=== PATIENT | female | born 1985 | race American Indian/Alaskan Native ===

== ENCOUNTER 2016-12-06 22:26 | Emergency (ER) | payer MEDICAID ==
[2016-12-07 00:01] LABS: Basophils % (Auto) 0.3 % (0.0-1.8); Eosinophils % (Auto) 1.3 % (0.0-4.3); Hematocrit 34.2 % (30.3-42.9); Hemoglobin 11.8 gm/dl (10.1-14.3); Mean Corpuscular HGB Conc 34 % (30-34); Mean Corpuscular Hemoglobin 32 pg (28-32); Mean Corpuscular Volume 92 fl (79-97); Platelet Count 222 K/mm3 (140-440); Red Blood Count 3.71 M/mm3 (3.65-5.03); Red Cell Distribution Width 13.8 % (13.2-15.2); White Blood Count 7.6 K/mm3 (4.5-11.0)
[2016-12-07 00:18] LABS: Anion Gap 19 mmol/L; Blood Urea Nitrogen 12 mg/dL (7-17); Calcium 8.9 mg/dL (8.4-10.2); Carbon Dioxide 20 mmol/L (22-30); Chloride 103.1 mmol/L (98-107); Glucose 158 mg/dL (65-100); Potassium 3.9 mmol/L (3.6-5.0); Sodium 138 mmol/L (137-145)
[2016-12-07 01:32] LABS: Bilirubin,Urine NEG (Negative); Blood,Urine MOD (Negative); Ketones,Urine 20 mg/dL (Negative); Leukocyte Esterase,Urine TR (Negative); Mucus,Urine FEW /HPF; Nitrite,Urine NEG (Negative); Protein,Urine <15 mg/dL mg/dL (Negative); Urobilinogen,Urine < 2.0 mg/dL (<2.0)
--- NOTE | 2016-12-07 07:02 | Emergency Department Report ---
ED General Adult HPI - General Chief complaint: Headache Stated complaint: MED REFILL GESTATIONAL DIABETES Time Seen by Provider: 12/07/16 06:49 Source: patient Mode of arrival: Ambulatory Limitations: No Limitations - History of Present Illness Initial comments: 31-year-old female presents to the emergency department complaining of general ill feeling. She states she ran out of her glipizide 3 days ago. Patient is complaining of feeling lightheaded, that has not passed out. She also reported mild frontal headache. This pain was aching in nature and did not radiate. Patient is 26 weeks , . She denies abdominal pain, nausea, vomiting, vaginal discharge, or vaginal bleeding. At this time, the patient reports she is feeling better. There are no other complaints. -: Gradual, days(s) (3) Location: head Radiation: non-radiation Severity scale (0 -10): 0 Quality: aching Consistency: intermittent, now resolved Improves with: none Worsens with: none Associated Symptoms: denies other symptoms Treatments Prior to Arrival: none - Related Data Previous Rx's Medication Instructions Recorded Last Taken Type glipiZIDE [Glucotrol] 10 mg PO BID #10 tablet 12/07/16 Unknown Rx Allergies Allergy/AdvReac Type Severity Reaction Status Date / Time No Known Allergies Allergy Verified 12/06/16 23:00 ED Review of Systems ROS: Stated complaint: MED REFILL GESTATIONAL DIABETES Other details as noted in HPI Comment: All other systems reviewed and negative Constitutional: see HPI Neurological: headache ED Past Medical Hx - Past Medical History Previous Medical History?: Yes Hx Diabetes: Yes (GESTANIONAL) - Surgical History Past Surgical History?: Yes Additional Surgical History: C SECTION X 1 - Family History Family history: no significant - Social History Smoking Status: Never Smoker Substance Use Type: None - Medications Home Medications: Home Medications Medication Instructions Recorded Confirmed Last Taken Type glipiZIDE [Glucotrol] 10 mg PO BID #10 tablet 12/07/16 Unknown Rx ED Physical Exam - General Limitations: No Limitations General appearance: alert, in no apparent distress - Head Head exam: Present: atraumatic, normocephalic - Eye Eye exam: Present: normal appearance, PERRL, EOMI - ENT ENT exam: Present: normal exam, normal orophraynx, mucous membranes moist - Neck Neck exam: Present: normal inspection, full ROM. Absent: tenderness - Respiratory Respiratory exam: Present: normal lung sounds bilaterally. Absent: respiratory distress - Cardiovascular Cardiovascular Exam: Present: regular rate, normal rhythm, normal heart sounds - GI/Abdominal GI/Abdominal exam: Present: soft, distended (gravid uterus), normal bowel sounds. Absent: tenderness - Extremities Exam Extremities exam: Present: normal inspection, full ROM. Absent: tenderness - Back Exam Back exam: Present: normal inspection, full ROM. Absent: tenderness - Neurological Exam Neurological exam: Present: alert, oriented X3. Absent: motor sensory deficit - Skin Skin exam: Present: warm, dry, intact ED Course Vital Signs 12/06/16 12/07/16 23:01 05:47 Temperature 98.3 F Pulse Rate 86 69 Respiratory 18 16 Rate Blood Pressure 118/70 Blood Pressure 115/75 [Right] O2 Sat by Pulse 100 99 Oximetry ED Medical Decision Making - Lab Data Result diagrams: 12/06/16 23:43 12/06/16 23:43 - Medical Decision Making Lab results reviewed and discussed with the patient. Her initial fingerstick blood sugar was 186. Her last blood sugar of was 116. She reports feeling better. Patient states she has a prescription for medication at the pharmacy, but her insurance will not pay for it for a couple of more days. Patient will be given a prescription for a small supply of medication until her insurance will pay for the full prescription. She will be discharged home to follow up with her [facility] [employer]. - Differential Diagnosis gestational diabetes, medication noncompliance Critical care attestation.: If time is entered above; I have spent that time in minutes in the direct care of this critically ill patient, excluding procedure time. ED Disposition Clinical Impression: Gestational diabetes Qualifiers: Gestational diabetes mellitus control: oral hypoglycemic-controlled Trimester: third trimester Qualified Code(s): O24.415 - Gestational diabetes mellitus in , controlled by oral hypoglycemic drugs Disposition: DISCHARGED TO HOME OR SELFCARE Is pt being admited?: No Condition: Stable Instructions: Gestational Diabetes (ED) Prescriptions: glipiZIDE [Glucotrol] 10 mg PO BID #10 tablet Referrals: PRIMARY CARE, [Primary Care Provider] - 3-5 Days Time of Disposition: 07:04
[2016-12-07 07:37] VITALS: BP 98/65
== END 2016-12-07 07:37 | disposition home or self-care (01) ==
LOC: ED 22:26
DX: O24.415 Gestational diabetes mellitus in pregnancy, controlled by oral hypoglycemic drugs (principal); Z3A.26 26 weeks gestation of pregnancy
CPT/HCPCS: 36415; 80048; 81001; 82962; 85025; 99283

== ENCOUNTER 2017-01-18 09:02 | Outpatient (CLI) | payer MEDICAID ==
[2017-01-18 10:34] VITALS: BP 82/38
[2017-01-18] MEDS ORDERED: LACTATED RINGERS 500 ML IV ONE (13:00)
--- NOTE | 2017-01-18 13:16 | Ultrasound Report ---
OB ULTRASOUND GREATER THAN 14 WEEKS INDICATION: Evaluate growth and anatomy. well-being. COMPARISON: None similar at this institution. TECHNIQUE: Transabdominal grayscale ultrasound with Doppler interrogation. Gestation: [place] Position: Variable Amniotic Fluid: WNL (7-24 cm) JACKIE = 18.8 cm Placenta: Anterior Placental Grade: 0 Heart Rate: 132 BPM Cervical length: 4.1 cm (Normal > 3 cm) NEUROANATOMY VISUALIZED: Choroid Plexus Cisterna Magnum Cerebellum Lateral Ventricle ANATOMY VISUALIZED: Stomach Kidneys Bladder Diaphragm 4 Chamber Heart Heart 3 Vessel Cord Abd. Cord Insert SPINE VISUALIZED: Longitudinal Transverse BPD: 7.1 cm = 28 w 4 d HC: 26.6 cm = 29 w 0 d AC: 27 cm = 31 w 1 d FL: 5.6 cm = 29 w 3 d HC/AC Ratio: 0.99 Cephalic Index: 78.5 Estimated Weight: 1522 grams Clinical age = 29 w 5 d EDC: 03/31/2017 US Gest. Age = 29 w 4 d EDC: 04/01/2017 CONCLUSION: Single, viable intrauterine gestation with ultrasound estimated age of 29 weeks and 4 days and EDC of 04/01/2017, currently in variable lie with details, as above. Thank you for the opportunity to participate in this patient's care.
== END 2017-01-18 12:50 | disposition home or self-care (01) ==
LOC: TRG 09:02
PROVIDERS: ATTEND Obstetrics & Gynecology
DX: O47.03 False labor before 37 completed weeks of gestation, third trimester (principal); Z3A.29 29 weeks gestation of pregnancy
CPT/HCPCS: 59025; 76805

== ENCOUNTER 2018-08-11 09:33 | Emergency (ER) | payer MEDICAID ==
[2018-08-11] MEDS ORDERED: IBUPROFEN PO ONE (12:22)
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
[2018-08-11 14:09] VITALS: BP 143/76
== END 2018-08-11 14:09 | disposition home or self-care (01) ==
LOC: ED 09:33
DX: S13.4XXA Sprain of ligaments of cervical spine, initial encounter (principal); S39.012A Strain of muscle, fascia and tendon of lower back, initial encounter; S76.011A Strain of muscle, fascia and tendon of right hip, initial encounter; F17.200 Nicotine dependence, unspecified, uncomplicated; V89.2XXA Person injured in unspecified motor-vehicle accident, traffic, initial encounter; Y93.89 Activity, other specified; Y92.488 Other paved roadways as the place of occurrence of the external cause; Y99.8 Other external cause status
CPT/HCPCS: 72040; 72100; 99283